=== PATIENT | female | born 1950 | race Caucasian/White ===

== ENCOUNTER 2017-08-05 02:01 | Inpatient (IN) | payer MEDICARE, MEDICAID ==
[~2017-08-05] VITALS: Ht 175.3 cm; Wt 60.7 kg
[2017-08-05] MEDS ORDERED: ALBUTEROL SULFATE 2.5 MG/3 ML ONE (02:05)
[2017-08-05] MEDS ORDERED: ALBUTEROL/IPRATROPIUM 2.5MG/0.5MG, 3 ML ONE (02:05)
[2017-08-05] MEDS ORDERED: methylPREDNISolone SOD SUCC 125 MG/2 ML ONE (02:16)
[2017-08-05 02:19] LABS: HEMATOCRIT 38.7 % (34.6-47.8); HEMOGLOBIN 12.4 g/dL (11.7-16.4); WHITE BLOOD COUNT 6.9 x10^3/uL (3.4-10)
[2017-08-05] MEDS ORDERED: SODIUM CHLORIDE FLUSH 10ML SYR IVF ONE (02:30)
[2017-08-05] MEDS ORDERED: ALBUTEROL SULFATE 2.5 MG/3 ML NPPB ONE (02:30)
[2017-08-05] MEDS ORDERED: methylPREDNISolone SOD SUCC 125 MG/2 ML IVPush SCH (02:30)
[2017-08-05] MEDS ORDERED: SODIUM CHLORIDE 0.9% 1,000ML IVBOLUS ONE (02:30)
[2017-08-05] MEDS ORDERED: ALBUTEROL/IPRATROPIUM 2.5MG/0.5MG, 3 ML NPPB ONE (02:30)
[2017-08-05] MEDS ORDERED: PLEASE ENTER HEIGHT AND WEIGHT MC SCH (02:30)
[2017-08-05 02:31] LABS: BLOOD UREA NITROGEN 14 mg/dL (7-18)
[2017-08-05 02:38] LABS: ASPARTATE AMINO TRANSFERASE 51 U/L (15-37); IS PT STATUS REG ER OR PRE ER? YES
[2017-08-05] MEDS ORDERED: NITROGLYCERIN/D5W PMX 250 ML IV PRN ×2 (02:41→04:00)
[2017-08-05 02:44] LABS: DIFF TOTAL CELLS COUNTED 100 CELL DIFF
[2017-08-05 02:46] LABS: VERIFY COUNTS? YES
[2017-08-05 02:47] LABS: ANISOCYTOSIS 1+
[2017-08-05] MEDS ORDERED: POTASSIUM CHLORIDE 20 MEQ TAB.ER.PRT ONE ×2 (02:56→10:02)
[2017-08-05] MEDS ORDERED: OXYcodone IR 5MG TABLET ONE (02:56)
[2017-08-05] MEDS ORDERED: FUROSEMIDE 20 MG/2 ML ONE ×2 (02:56→08:05)
[2017-08-05] MEDS ORDERED: NITROGLYCERIN SINGLE TAB 0.4 MG SL ONE ×2 (02:57→03:00)
[2017-08-05] MEDS ORDERED: NITROGLYCERIN/D5W PMX 250 ML ONE (02:58)
[2017-08-05] MEDS ORDERED: POTASSIUM CHLORIDE 20 MEQ TAB.ER.PRT PO ONE ×2 (03:00→09:00)
[2017-08-05] MEDS ORDERED: FUROSEMIDE 20 MG/2 ML IV ONE (03:00)
[2017-08-05] MEDS ORDERED: OXYcodone IR 5MG TABLET PO ONE (03:00)
[2017-08-05] MEDS ORDERED: METO25TA35 PO (03:16)
[2017-08-05] MEDS ORDERED: ESCI10TA10 PO (03:16)
[2017-08-05] MEDS ORDERED: OXYC15TA75 PO (03:16)
[2017-08-05] MEDS ORDERED: morphine SULFATE 10 MG/ML, 1ML IVPush PRN (04:00)
[2017-08-05] MEDS ORDERED: ONDANSETRON 2MG/ML, 2ML IVPush PRN (04:00)
[2017-08-05] MEDS ORDERED: ENALAPRILAT 1.25 MG/ML, 2ML IVPush PRN (04:00)
[2017-08-05] MEDS ORDERED: DOCUSATE 100 MG CAPSULE PO PRN (04:00)
[2017-08-05] MEDS ORDERED: ACETAMINOPHEN 325 MG TABLET PO PRN (04:00)
[2017-08-05 04:26] LABS: HEMATOCRIT 38.3 % (34.6-47.8); HEMOGLOBIN 12.6 g/dL (11.7-16.4); WHITE BLOOD COUNT 9.9 x10^3/uL (3.4-10)
[2017-08-05 04:37] LABS: BLOOD UREA NITROGEN 14 mg/dL (7-18)
[2017-08-05] MEDS ORDERED: NITROGLYCERIN OINT 2%, 1GM TP ONE ×2 (04:37→05:00)
[2017-08-05 04:45] LABS: IS PT STATUS REG ER OR PRE ER? YES
[2017-08-05 04:54] LABS: DIFF TOTAL CELLS COUNTED 100 CELL DIFF
[2017-08-05 04:56] LABS: ANISOCYTOSIS 1+; VERIFY COUNTS? YES
[2017-08-05 04:57] LABS: LARGE PLATELETS 1+; OVALOCYTES 1+
[2017-08-05] MEDS ORDERED: ASPIRIN 325 MG TABLET PO ONE (05:00)
[2017-08-05] MEDS: ASPIRIN 81 MG TABLET EC PO SCH (06:00)
[2017-08-05] MEDS ORDERED: ASPIRIN 325 MG TABLET ONE (06:14)
[2017-08-05] MEDS ORDERED: ENOXAPARIN 60 MG/0.6 ML ONE (06:15)
[2017-08-05] MEDS: ENOXAPARIN 60 MG/0.6 ML SQ SCH ×2 (06:17→17:00)
[2017-08-05] MEDS ORDERED: FUROSEMIDE 40 MG/4 ML IV SCH ×2 (07:30→17:00)
[2017-08-05] MEDS: POTASSIUM CHLORIDE 20 MEQ PACKET PO SCH ×2 (08:00→20:50)
[2017-08-05] MEDS: SODIUM CHLORIDE FLUSH 10ML SYR IVF SCH ×2 (08:03→20:50)
[2017-08-05 09:55] LABS: IS PT STATUS REG ER OR PRE ER? YES
[2017-08-05] MEDS: LACTULOSE 10 GM/15 ML UDC PO SCH ×2 (10:51→20:50)
[2017-08-05] MEDS ORDERED: MORPHINE SULFATE 4 MG/ML, 1ML ONE (12:53)
[2017-08-05 14:00] VITALS: BP 143/88
[2017-08-05] MEDS: OXYcodone IR 5MG TABLET PO SCH (17:56)
[2017-08-05 19:32] LABS: IS PT STATUS REG ER OR PRE ER? NO
[2017-08-05 19:40] VITALS: BP 113/71
[2017-08-05] MEDS ORDERED: PREG100C PO (20:54)
[2017-08-06 01:59] VITALS: BP 153/94
[2017-08-06] MEDS: OXYcodone IR 5MG TABLET PO SCH ×3 (02:03→16:21)
[2017-08-06 05:27] LABS: HEMATOCRIT 37.4 % (34.6-47.8); HEMOGLOBIN 12.3 g/dL (11.7-16.4); WHITE BLOOD COUNT 10.8 x10^3/uL (3.4-10)
[2017-08-06 05:39] LABS: BLOOD UREA NITROGEN 21 mg/dL (7-18)
[2017-08-06 05:42] LABS: ASPARTATE AMINO TRANSFERASE 18 U/L (15-37)
[2017-08-06 06:07] LABS: IS PT STATUS REG ER OR PRE ER? NO
[2017-08-06 08:32] VITALS: BP 174/103
[2017-08-06] MEDS: CITALOPRAM 20 MG TABLET PO SCH (08:38)
[2017-08-06] MEDS: METOPROLOL TARTRATE 25 MG TABLET PO SCH (08:38)
[2017-08-06] MEDS: POTASSIUM CHLORIDE 20 MEQ PACKET PO SCH ×2 (08:38→16:21)
[2017-08-06] MEDS: ASPIRIN 81 MG TABLET EC PO SCH (08:38)
[2017-08-06] MEDS: SODIUM CHLORIDE FLUSH 10ML SYR IVF SCH ×2 (08:39→20:18)
[2017-08-06] MEDS: LACTULOSE 10 GM/15 ML UDC PO SCH ×2 (08:39→20:18)
[2017-08-06 08:55] LABS: IS PT STATUS REG ER OR PRE ER? NO
[2017-08-06] MEDS ORDERED: ENOXAPARIN 40 MG/0.4 ML SQ SCH (09:00)
[2017-08-06] MEDS: LISINOPRIL 5 MG TABLET PO SCH ×2 (11:00→20:19)
[2017-08-06] MEDS: LORazepam 2 MG/ML, 1ML IVPush PRN ×2 (11:14→20:19)
[2017-08-06] MEDS ORDERED: HEPARIN 5,000 UNITS/ML, 1ML IV ONE (11:30)
[2017-08-06] MEDS ORDERED: HEPARIN 25,000 UNITS/500ML PMX 500 ML IV PRN (11:30)
[2017-08-06 11:49] VITALS: BP 92/64
[2017-08-06 14:24] VITALS: BP 145/91
[2017-08-06] MEDS: FUROSEMIDE 40 MG/4 ML IV SCH (16:22)
[2017-08-06] MEDS: HEPARIN 5,000 UNITS/ML, 1ML IV PRN (18:21)
[2017-08-06 19:00] VITALS: BP 116/75
[2017-08-06] MEDS: ATORVASTATIN 20 MG TABLET PO SCH (20:19)
[2017-08-07] VITALS (7 sets, daily range): BP systolic 82–143; BP diastolic 53–87
[2017-08-07] MEDS: OXYcodone IR 5MG TABLET PO SCH ×4 (00:56→19:51)
[2017-08-07] MEDS: HEPARIN 5,000 UNITS/ML, 1ML IV PRN ×2 (01:05→09:22)
[2017-08-07 05:27] LABS: HEMATOCRIT 37.5 % (34.6-47.8); HEMOGLOBIN 12.6 g/dL (11.7-16.4); WHITE BLOOD COUNT 7.4 x10^3/uL (3.4-10)
[2017-08-07 05:37] LABS: BLOOD UREA NITROGEN 17 mg/dL (7-18)
[2017-08-07 05:44] LABS: ASPARTATE AMINO TRANSFERASE 15 U/L (15-37); IS PT STATUS REG ER OR PRE ER? NO
[2017-08-07] MEDS: POTASSIUM CHLORIDE 20 MEQ PACKET PO SCH ×2 (08:00→17:00)
[2017-08-07] MEDS ORDERED: POTASSIUM CHLORIDE 20 MEQ TAB.ER.PRT PO SCH (08:30)
[2017-08-07] MEDS: LACTULOSE 10 GM/15 ML UDC PO SCH ×2 (09:00→19:49)
[2017-08-07] MEDS ORDERED: MAGNESIUM SULFATE PMX 2GM/50ML 50 ML IV ONE (09:00)
[2017-08-07] MEDS: METOPROLOL TARTRATE 25 MG TABLET PO SCH (09:20)
[2017-08-07] MEDS: ASPIRIN 81 MG TABLET EC PO SCH (09:21)
[2017-08-07] MEDS: SODIUM CHLORIDE FLUSH 10ML SYR IVF SCH ×2 (09:21→19:49)
[2017-08-07] MEDS: LISINOPRIL 5 MG TABLET PO SCH ×2 (09:21→19:49)
[2017-08-07] MEDS: CITALOPRAM 20 MG TABLET PO SCH (09:21)
[2017-08-07] MEDS: FUROSEMIDE 40 MG/4 ML IV SCH ×2 (09:29→17:00)
[2017-08-07] MEDS: LORazepam 2 MG/ML, 1ML IVPush PRN (11:57)
[2017-08-07] MEDS ORDERED: MIDAZOLAM 1 MG/ML, 5ML ONE (12:38)
[2017-08-07] MEDS ORDERED: FENTANYL PF 100 MCG/2ML ONE (12:38)
[2017-08-07] MEDS ORDERED: HEPARIN 1,000 UNITS/ML, 10ML ONE (12:39)
[2017-08-07] MEDS ORDERED: BIVALIRUDIN 250 MG ONE (12:39)
[2017-08-07] MEDS ORDERED: TICAGRELOR 90 MG TABLET ONE (12:39)
[2017-08-07] MEDS ORDERED: VERAPAMIL 2.5 MG/ML, 2ML ONE (12:39)
[2017-08-07] MEDS ORDERED: LIDOCAINE 2%, 20ML ONE (12:39)
[2017-08-07] MEDS ORDERED: ATROPINE SYRINGE 0.1 MG/ML, 10ML ONE (15:12)
[2017-08-07] MEDS: CLOPIDOGREL 75 MG TABLET PO SCH (16:56)
[2017-08-07] MEDS: ATORVASTATIN 20 MG TABLET PO SCH (19:50)
[2017-08-07] MEDS ORDERED: SODIUM CHLORIDE 0.9%, 500ML IVBOLUS ONE (20:30)
[2017-08-08 01:27] VITALS: BP 114/71
[2017-08-08 02:57] VITALS: BP 128/82
[2017-08-08] MEDS: OXYcodone IR 5MG TABLET PO SCH ×3 (02:58→16:46)
[2017-08-08 05:10] VITALS: BP 104/68
[2017-08-08 05:29] LABS: HEMATOCRIT 36.9 % (34.6-47.8); WHITE BLOOD COUNT 4.7 x10^3/uL (3.4-10)
[2017-08-08 06:05] LABS: ASPARTATE AMINO TRANSFERASE 12 U/L (15-37); BLOOD UREA NITROGEN 32 mg/dL (7-18)
[2017-08-08 08:08] VITALS: BP 120/78
[2017-08-08] MEDS: SODIUM CHLORIDE FLUSH 10ML SYR IVF SCH ×2 (08:55→21:37)
[2017-08-08] MEDS: FUROSEMIDE 40 MG/4 ML IV SCH ×2 (08:55→16:46)
[2017-08-08] MEDS: ASPIRIN 81 MG TABLET EC PO SCH (08:55)
[2017-08-08] MEDS: POTASSIUM CHLORIDE 20 MEQ PACKET PO SCH ×2 (08:55→16:46)
[2017-08-08] MEDS: LACTULOSE 10 GM/15 ML UDC PO SCH ×2 (08:56→21:37)
[2017-08-08] MEDS: CITALOPRAM 20 MG TABLET PO SCH (08:56)
[2017-08-08] MEDS: LISINOPRIL 5 MG TABLET PO SCH ×2 (08:56→21:38)
[2017-08-08] MEDS: CLOPIDOGREL 75 MG TABLET PO SCH (08:57)
[2017-08-08 15:22] VITALS: BP 97/61
[2017-08-08 19:47] VITALS: BP 108/64
[2017-08-08] MEDS: ATORVASTATIN 20 MG TABLET PO SCH (21:37)
[2017-08-09 01:25] VITALS: BP 119/65
[2017-08-09] MEDS: OXYcodone IR 5MG TABLET PO SCH ×3 (01:33→14:01)
[2017-08-09] MEDS: ASPIRIN 81 MG TABLET EC PO SCH (05:14)
[2017-08-09 06:58] VITALS: BP 113/70
[2017-08-09] MEDS: FUROSEMIDE 40 MG/4 ML IV SCH (08:07)
[2017-08-09] MEDS: LACTULOSE 10 GM/15 ML UDC PO SCH (08:07)
[2017-08-09] MEDS: POTASSIUM CHLORIDE 20 MEQ PACKET PO SCH (08:07)
[2017-08-09] MEDS: SODIUM CHLORIDE FLUSH 10ML SYR IVF SCH (08:07)
[2017-08-09] MEDS: CITALOPRAM 20 MG TABLET PO SCH (08:08)
[2017-08-09] MEDS: LISINOPRIL 5 MG TABLET PO SCH (08:08)
[2017-08-09] MEDS: CLOPIDOGREL 75 MG TABLET PO SCH (08:08)
[2017-08-09] MEDS ORDERED: CLOP75TA PO (12:54)
[2017-08-09] MEDS ORDERED: LISI5TAB7 PO (12:54)
[2017-08-09] MEDS ORDERED: ATOR20TA9 PO (12:54)
[2017-08-09] MEDS ORDERED: FURO40TA6 PO (12:54)
[2017-08-09] MEDS ORDERED: ASPI-621 PO (12:54)
[2017-08-09] MEDS ORDERED: POTA20TA14 PO (12:54)
[2017-08-09 13:52] VITALS: BP 99/61
== END 2017-08-09 15:00 | disposition home or self-care (01) | DRG 280 ==
LOC: ED 02:47 → SUATTDRO 03:49 → EDIP 03:51 → 5SO 13:43 → DCLOUNGE 08-09 14:00
PROVIDERS: ADMIT Hospitalist; ATTEND Hospitalist
PROC: 4A023N7 Measurement of Cardiac Sampling and Pressure, Left Heart, Percutaneous Approach (ICD-10-PCS; principal; 2017-08-05)
PROC: B2111ZZ Fluoroscopy of Multiple Coronary Arteries using Low Osmolar Contrast (ICD-10-PCS; 2017-08-05)
PROC: B2151ZZ Fluoroscopy of Left Heart using Low Osmolar Contrast (ICD-10-PCS; 2017-08-05)
DX: I21.4 Non-ST elevation (NSTEMI) myocardial infarction (principal); J96.01 Acute respiratory failure with hypoxia; I50.41 Acute combined systolic (congestive) and diastolic (congestive) heart failure; I47.2 Ventricular tachycardia; J81.0 Acute pulmonary edema; I42.9 Cardiomyopathy, unspecified; I51.81 Takotsubo syndrome; D72.829 Elevated white blood cell count, unspecified; I11.0 Hypertensive heart disease with heart failure; E78.5 Hyperlipidemia, unspecified; E87.6 Hypokalemia; F17.210 Nicotine dependence, cigarettes, uncomplicated; F41.1 Generalized anxiety disorder; G89.4 Chronic pain syndrome; I25.118 Atherosclerotic heart disease of native coronary artery with other forms of angina pectoris; I27.2 Other secondary pulmonary hypertension; J44.9 Chronic obstructive pulmonary disease, unspecified; J98.01 Acute bronchospasm; F32.9 Major depressive disorder, single episode, unspecified; G47.00 Insomnia, unspecified; M19.90 Unspecified osteoarthritis, unspecified site; Z79.899 Other long term (current) drug therapy; Z90.710 Acquired absence of both cervix and uterus; Z71.6 Tobacco abuse counseling
CPT/HCPCS: 36415; 71010; 80048; 80053; 80061; 81003; 83036; 83735; 83880; 84484; 85025; 85520; 85610; 85730; 93005; 93306; 93458; 93970; 94640; 96374; 96375; 96376; 99156; C1894; J0583; J1644; J1650; J1940; J2250; J3010; J3490; J2060; J2930; J3475; J7030; J7040; Q9967

== ENCOUNTER 2017-11-15 05:01 | Emergency (ER) | payer MEDICARE, MEDICAID ==
[~2017-11-15] VITALS: Ht 175.3 cm; Wt 134.0 kg
[~2017-11-15 05:01] MED LIST: ASPI-621 PO; ATOR20TA9 PO; CLOP75TA PO; ESCI10TA10 PO; FURO40TA6 PO; LISI5TAB7 PO; METO25TA35 PO; OXYC15TA75 PO; POTA20TA14 PO; PREG100C PO
[2017-11-15] MEDS ORDERED: SODIUM CHLORIDE FLUSH 10ML SYR IVF ONE (05:30)
[2017-11-15 05:40] LABS: BASOPHILS # (AUTO) 0.01 x10^3/uL (0-0.1); BASOPHILS % (AUTO) 0 % (0-1); EOSINOPHILS # (AUTO) 0.08 x10^3/uL (0-0.4); EOSINOPHILS % (AUTO) 1 % (1-7); LYMPHOCYTES # (AUTO) 1.33 x10^3/uL (1-3.4); LYMPHOCYTES % (AUTO) 20 % (22-44); MD NO; MEAN CORPUSCULAR HEMOGLOBIN 29.6 pg (27.0-34.8); MEAN CORPUSCULAR HGB CONC 32.2 g/dL (32.4-35.8); MEAN CORPUSCULAR VOLUME 91.9 fL (80-100); MEAN PLATELET VOLUME 8.9 fL (7.4-10.4); MONOCYTES # (AUTO) 0.18 x10^3/uL (0.2-0.8); MONOCYTES % (AUTO) 3 % (2-9); NEUTROPHILS # (AUTO) 5.19 x10^3/uL (1.8-6.8); NEUTROPHILS % (AUTO) 76 % (42-75); PLATELET COUNT 160 x10^3/uL (130-400); RED BLOOD COUNT 3.91 x10^6/uL (3.82-5.3); RED CELL DISTRIBUTION WIDTH 16.5 % (9.6-15.2)
[2017-11-15 05:47] LABS: ALBUMIN 3.3 g/dL (3.4-5.0); ANION GAP 8 mmol/L (5-15); CALCIUM 8.3 mg/dL (8.5-10.1); CHLORIDE 110 mmol/L (98-107); CREATININE 0.83 mg/dL (0.55-1.02)
[2017-11-15 05:52] LABS: TROPONIN I < 0.015 ng/mL (0.000-0.045)
[2017-11-15 06:59] VITALS: BP 171/85
[2017-11-15] MEDS ORDERED: POTASSIUM CHLORIDE 20 MEQ TAB.ER.PRT PO ONE (07:00)
[2017-11-15] MEDS ORDERED: FUROSEMIDE 40 MG/4 ML IV ONE (07:00)
[2017-11-15] MEDS ORDERED: POTASSIUM CHLORIDE 20 MEQ TAB.ER.PRT ONE (07:06)
[2017-11-15] MEDS ORDERED: FUROSEMIDE 40 MG/4 ML ONE (07:06)
[2017-11-15] MEDS ORDERED: FUROSEMIDE 40 MG TABLET PO ONE (07:30)
== END 2017-11-15 07:34 | disposition home or self-care (01) ==
LOC: ED 05:37
DX: J44.1 Chronic obstructive pulmonary disease with (acute) exacerbation (principal); I50.9 Heart failure, unspecified; E78.00 Pure hypercholesterolemia, unspecified; G89.29 Other chronic pain; I11.0 Hypertensive heart disease with heart failure
CPT/HCPCS: 36415; 71010; 80048; 82040; 83880; 84484; 85025; 93005; 99285; J7512

== ENCOUNTER 2018-08-09 02:50 | Emergency (ER) | payer MEDICAID, MEDICARE ==
[~2018-08-09] VITALS: Ht 162.6 cm; Wt 50.0 kg
[2018-08-09 03:39] LABS: MEAN CORPUSCULAR VOLUME 87.9 fL (80-100); MEAN PLATELET VOLUME 8.3 fL (7.4-10.4); PLATELET COUNT 306 x10^3/uL (130-400); RED BLOOD COUNT 3.31 x10^6/uL (3.82-5.3); RED CELL DISTRIBUTION WIDTH 17.1 % (9.6-15.2)
[2018-08-09 03:44] LABS: MICROSCOPIC NOT IND
[2018-08-09 03:47] LABS: ALBUMIN 3.3 g/dL (3.4-5.0); ANION GAP 10 mmol/L (5-15); CALCIUM 8.7 mg/dL (8.5-10.1); CHLORIDE 110 mmol/L (98-107)
[2018-08-09 03:47] LABS: CULTURE INDICATED? NO
[2018-08-09 03:48] LABS: CREATININE 0.81 mg/dL (0.55-1.02)
[2018-08-09 04:15] LABS: MD YES
[2018-08-09 04:21] LABS: ANISOCYTOSIS 1+; BAND#(MANUAL) 0.05 x10^3/uL; BANDS%(MANUAL) 1 % (0-7); BASOS#(MANUAL) 0.05 x10^3/uL (0-0.1); BASOS% (MANUAL) 1 % (0-1); EOS#(MANUAL) 0.05 x10^3/uL (0.0-0.4); EOS% (MANUAL) 1 % (1-7); LYMPHS% (MANUAL) 25 % (22-44); MONOS#(MANUAL) 0.19 x10^3/uL (0.3-2.7); MONOS% (MANUAL) 4 % (2-9); SEG#(MANUAL) 3.26 x10^3/uL (1.8-6.8); SEGS% (MANUAL) 68 % (42-75)
[2018-08-09 04:22] LABS: <PLATELET ESTIMATE> ADEQUATE; <PLT MORPHOLOGY> NORMAL PLT MORPH; POLYCHROMASIA 1+
[2018-08-09] MEDS ORDERED: OXYcodone/APAP 5/325MG TABLET PO ONE (05:30)
[2018-08-09] MEDS ORDERED: OXYcodone/APAP 5/325MG TABLET ONE (05:37)
[2018-08-09] MEDS ORDERED: OXYC20TA2 PO (09:18)
[2018-08-09 10:53] VITALS: BP 167/64
== END 2018-08-09 10:58 | disposition home or self-care (01) ==
LOC: ED 03:57
DX: N39.41 Urge incontinence (principal); I11.0 Hypertensive heart disease with heart failure; I50.9 Heart failure, unspecified; E78.00 Pure hypercholesterolemia, unspecified; J44.9 Chronic obstructive pulmonary disease, unspecified; M19.90 Unspecified osteoarthritis, unspecified site; M54.5 Low back pain
CPT/HCPCS: 36415; 72148; 80048; 81003; 82040; 85025; 99285

== ENCOUNTER 2018-09-01 15:09 | Emergency (ER) | payer MEDICARE ==
[~2018-09-01] VITALS: Ht 175.3 cm; Wt 59.6 kg
[~2018-09-01 15:09] MED LIST changes: +OXYC20TA2 PO
[2018-09-01 15:16] VITALS: BP 165/84
[2018-09-01] MEDS ORDERED: HYDROmorphone 2 MG/ML, 1ML IM ONE (16:00)
[2018-09-01] MEDS ORDERED: ONDANSETRON ODT 4 MG PO ONE (16:00)
[2018-09-01] MEDS ORDERED: VITAMIN B12 (17:07)
[2018-09-01] MEDS ORDERED: HYDROmorphone 2 MG/ML, 1ML ONE (17:11)
== END 2018-09-01 17:39 | disposition home or self-care (01) ==
LOC: ED 17:00
DX: S52.571A Other intraarticular fracture of lower end of right radius, initial encounter for closed fracture (principal); I11.0 Hypertensive heart disease with heart failure; I50.9 Heart failure, unspecified; G89.29 Other chronic pain; E78.00 Pure hypercholesterolemia, unspecified; F32.9 Major depressive disorder, single episode, unspecified; M19.90 Unspecified osteoarthritis, unspecified site; J44.9 Chronic obstructive pulmonary disease, unspecified; F41.1 Generalized anxiety disorder; W18.30XA Fall on same level, unspecified, initial encounter; Y93.89 Activity, other specified; Y92.89 Other specified places as the place of occurrence of the external cause; Y99.8 Other external cause status
CPT/HCPCS: 29125; 73110; 73130; 96372; 99284; J1170